=== PATIENT | male | born 1955 | race Caucasian/White ===

== ENCOUNTER 2016-07-28 12:58 | Inpatient (IN) | payer MEDICAID ==
[~2016-07-28] VITALS: Ht 160 cm; Wt 80.0 kg
[2016-07-28] MEDS ORDERED: ASPIRIN 81 MG TAB PO STA (13:03)
[2016-07-28] MEDS ORDERED: NITROGLYCERIN 2% 1 GM OINT PKT TD STA (13:03)
[2016-07-28] MEDS ORDERED: NITROGLYCERIN (SL) 0.4 MG TAB SL PRN ×2 (13:30→15:00)
[2016-07-28 13:36] LABS: ADD SCAN DIFF NO
[2016-07-28 13:39] LABS: BASOPHILS % 0.5 % (0.0-2.0); EOSINOPHILS # 0.2 10^3/ul (0.0-0.5); EOSINOPHILS % 2.3 % (0.0-7.0); HEMATOCRIT 44.6 % (42.0-52.0); HEMOGLOBIN 15.2 g/dl (14.0-18.0); LYMPHOCYTES # 2.8 10^3/ul (0.8-2.9); LYMPHOCYTES % 32.7 % (15.0-51.0); MEAN CORPUSCULAR HEMOGLOBIN 30.8 pg (29.0-33.0); MEAN CORPUSCULAR HGB CONC 34.1 g/dl (32.0-37.0); MEAN CORPUSCULAR VOLUME 90.5 fl (82.0-101.0); MEAN PLATELET VOLUME 10.8 fl (7.4-10.4); MONOCYTE # 0.7 10^3/ul (0.3-0.9); MONOCYTES % 8.1 % (0.0-11.0); NEUTROPHIL # 4.7 10^3/ul (1.6-7.5); NEUTROPHILS % 55.9 % (39.0-77.0); PLATELET COUNT 209 10^3/UL (140-415); RED BLOOD COUNT 4.93 10^6/ul (4.70-6.10); RED CELL DISTRIBUTION WIDTH 12.1 % (11.5-14.5); WHITE BLOOD COUNT 8.4 10^3/ul (4.8-10.8)
[2016-07-28 13:48] LABS: INR 0.91; PROTIME 12.2 Sec (12.2-14.2)
[2016-07-28 13:53] LABS: ANION GAP 12 (8-16); BLOOD UREA NITROGEN 21 mg/dl (7-20); CALCIUM 9.3 mg/dl (8.4-10.2); CARBON DIOXIDE 26 mmol/L (21-31); CHLORIDE 106 mmol/L (97-110); CREATININE 0.88 mg/dl (0.61-1.24); GLUCOSE 128 mg/dl (70-220); POTASSIUM 3.9 mmol/L (3.5-5.1); SODIUM 140 mmol/L (135-144)
--- NOTE | 2016-07-28 14:02 | RADRPT ---
PROCEDURE: Chest x-ray CLINICAL INDICATION: Chest Pain.. TECHNIQUE: One-view frontal. COMPARISON: None available FINDINGS: The cardiac silhouette is normal. No infiltrates are noted. No hilar abnormalities are identified. No pneumothorax or pleural effusions are visualized. Mild left basilar atelectatic changes are noted. IMPRESSION: 1. Mild left basilar atelectatic changes. RPTAT: HGSG .Rod Cooney MD, MD Date Time Electronically viewed and signed by .Rod Cooney MD, on 07/28/2016 14:01 .G/
[2016-07-28 14:24] LABS: TROPONIN-I < 0.012 ng/ml (0.00-0.12)
--- NOTE | 2016-07-28 14:39 | ERA ---
ER Documentation Chief Complaint Date/Time DATE: 07/28/16 TIME: 14:37 Chief Complaint CHEST PAIN STARTED TODAY AND ANXIETY HPI Patient is a 60-year-old male with hypertension who presents with chest pain. The patient was brought in by ambulance. He feels chest pressure and describes it as "cramps and spasms" of the chest. The symptoms started 10 days ago but have been worse over the past 2 days. He has had no treatment as of yet. Upon review of old medical records this the patient's first visit to the emergency department. Patient does not know the name of his primary doctor. ROS All systems reviewed and are negative except as per history of present illness. Medications Home Meds No Active Prescriptions or Reported Meds Allergies Allergies: Coded Allergies: No Known Allergy (Unverified , 07/28/16) PMhx/Soc Medical and Surgical Hx: pt denies Medical Hx, pt denies Surgical Hx Hx Alcohol Use: No Hx Substance Use: No Hx Tobacco Use: No Smoking Status: Never smoker FmHx Family History: No coronary disease Physical Exam Vitals Vital Signs Date Time Temp Pulse Resp B/P Pulse Ox O2 Delivery O2 Flow Rate FiO2 07/28/16 13:30 97.8 71 18 176/101 97 Physical Exam Const: Anxious Head: Atraumatic Eyes: Normal Conjunctiva ENT: Normal External Ears, Nose and Mouth. Neck: Full range of motion..~ No meningismus. Resp: Clear to auscultation bilaterally Cardio: Regular rate and rhythm, no murmurs Abd: Soft, non tender, non distended. Normal bowel sounds Skin: No petechiae or rashes Back: No midline or flank tenderness Ext: No cyanosis, or edema Neur: Awake and alert Psych: Anxious Result Diagram: 07/28/16 1325 07/28/16 1325 Results 24 hrs Laboratory Tests Test 07/28/16 13:25 White Blood Count 8.410^3/ul Red Blood Count 4.9310^6/ul Hemoglobin 15.2g/dl Hematocrit 44.6% Mean Corpuscular Volume 90.5fl Mean Corpuscular Hemoglobin 30.8pg Mean Corpuscular Hemoglobin Concent 34.1g/dl Red Cell Distribution Width 12.1% Platelet Count 33871^3/UL Mean Platelet Volume 10.8fl Neutrophils % 55.9% Lymphocytes % 32.7% Monocytes % 8.1% Eosinophils % 2.3% Basophils % 0.5% Nucleated Red Blood Cells % 0.0/100WBC Neutrophils # 4.710^3/ul Lymphocytes # 2.810^3/ul Monocytes # 0.710^3/ul Eosinophils # 0.210^3/ul Basophils # 0.010^3/ul Nucleated Red Blood Cells # 0.010^3/ul Prothrombin Time 12.2Sec Prothrombin Time Ratio 1.0 INR International Normalized Ratio 0.91 Activated Partial Thromboplast Time 27.0Sec Sodium Level 140mmol/L Potassium Level 3.9mmol/L Chloride Level 106mmol/L Carbon Dioxide Level 26mmol/L Anion Gap 12 Blood Urea Nitrogen 21mg/dl Creatinine 0.88mg/dl Glucose Level 128mg/dl Calcium Level 9.3mg/dl Troponin I < 0.012ng/ml Current Medications Medications (Trade) Dose Ordered Sig/Tamiko Route PRN Reason Start Time Stop Time Status Last Admin Dose Admin Aspirin (Aspirin) 162 mg ONCE STAT PO 07/28/16 13:03 07/28/16 13:04 DC 07/28/16 13:27 Nitroglycerin (Nitroglycerin 2% Oint) 1 inch ONCE STAT TD 07/28/16 13:03 07/28/16 13:04 DC 07/28/16 13:27 Nitroglycerin (Nitroglycerin (Sl Tab) 0.4 Mg) 1 tab Q5M UP TO 3 DOSES PRN SL CHEST PAIN 07/28/16 13:30 07/28/16 13:27 Ondansetron HCl (Zofran Inj) 4 mg ER BRIDGE PRN IV NAUSEA AND/OR VOMITING 07/28/16 15:00 07/29/16 14:59 Acetaminophen (Tylenol Tab) 650 mg ER BRIDGE PRN PO MILD PAIN/FEVER 07/28/16 15:00 07/29/16 14:59 Procedures/MDM EKG #1 read by me: Rate/Rhythm: Regular rate and rhythm at a rate of 83 Intervals: Normal Impression: No evidence of ischemia or arrhythmia EKG #2 pending at this time. Patient is a 60-year-old male with hypertension who presents with hypertension and chest pain. I am concerned for possible acute coronary syndrome. I doubt pneumonia, pneumothorax, pulmonary embolism, or aortic dissection. The patient was given aspirin and nitroglycerin. The patient will need admission to a telemetry bed for further workup. I spoke with Dr. sanjuana TAYLOR from the panel team as the patient does not know his primary doctor has never been here before. Departure Diagnosis: Primary Impression: Hypertension Qualified Code: I10 - Essential hypertension Additional Impression: Chest pain Qualified Code: R07.9 - Chest pain, unspecified type Condition: DINESH Rodriguez MD Jul 28, 2016 14:39
[2016-07-28] MEDS ORDERED: ACETAMINOPHEN 650 MG SUPP PR PRN (15:00)
[2016-07-28] MEDS ORDERED: HYDROCODONE/APAP (5/325) TAB PO PRN ×2 (15:00)
[2016-07-28] MEDS ORDERED: MAGNESIUM HYDROXIDE 30ML CUP PO PRN (15:00)
[2016-07-28] MEDS ORDERED: NACL 0.9% 3 ML SYG IV SCH (15:00)
[2016-07-28] MEDS ORDERED: ACETAMINOPHEN 325 MG TAB PO PRN ×2 (15:00)
[2016-07-28] MEDS ORDERED: ONDANSETRON 4 MG INJ IV PRN ×2 (15:00)
[2016-07-28] MEDS ORDERED: morphine 2 MG INJ IV PRN (15:00)
[2016-07-28] MEDS ORDERED: BISACODYL 10 MG SUPP PR PRN (15:00)
[2016-07-28] MEDS ORDERED: DOCUSATE SODIUM 100 MG CAP PO PRN (15:00)
[2016-07-28] MEDS ORDERED: hydrALAzine 20 MG INJ IV PRN (15:00)
--- NOTE | 2016-07-28 17:28 | HP ---
Date/Time of Note Date/Time of Note DATE: 07/28/16 TIME: 17:21 Assessment/Plan VTE Prophylaxis VTE Prophylaxis Intervention: SCD's Lines/Catheters IV [facility]from [facility] Saline Lock Assessment/Plan Chief Complaint/Hosp Course Impression and plan 1. Chest pain. Rule out ACS. Follow-up on serial troponins. Echocardiogram ordered. Follow-up on result. Will get agency service representative consultation as well. 2. Suspect GERD. Placed on PPI medication for now. If no improvement in reported pain, will obtain job placement specialist consultation 3. Hypertensive urgency. Will start on antihypertensive medications. Patient denies any previous history of hypertension. Will monitor for now. 4. Obesity. Weight reduction advised Admission process 40 minutes Discussed plan of care with Problems: HPI/ROS Admit Date/Time Admit Date/Time Hx of Present Illness There is a 52-year-old male with no reported past medical history who came to [facility] secondary to reports of chest pain for 10 days duration. According to the patient he started to have midsternal chest pain with some associated shortness of breath. He did report having some chest pain on exertion as well. He did report that the pain subsequently got worse 2 days prior to this admission and as such came to [facility] for further evaluation. Upon examination he was noted with high blood pressure as high as 176/101. He also had reported headaches associated with this. On chest x-ray he had mild left basilar atelectatic changes. He denied any shortness of breath however during evaluation. Basic metabolic panel as well as CBC were unremarkable and initial troponin noted at less than 0.012. Patient still reports having some midsternal chest pain. He does also report chest pain when he presses on epigastric area. He denies any fevers chills or any other sick contacts. He does report having moderate headaches with eye pain associated with this chest discomfort. We will evaluate him for the aformentiond issues ROS 12 point review of systems obtained and entirely negative except that mentioned in the history of present illness PMH/Family/Social Past Medical History Medical/surgical history 1. Reported umbilical hernia surgery 10 years ago Family History Significant Family History: other (Mother: Uterine cancer) Social History Alcohol Use: none Smoking Status: Never smoker Drug Use: none Exam/Review of Systems Vital Signs Vitals Vital Signs Date Time Temp Pulse Resp B/P Pulse Ox O2 Delivery O2 Flow Rate FiO2 07/28/16 13:30 97.8 71 18 176/101 97 Exam Constitutional: alert, oriented Psych: nl mood/affect Head: normocephalic Eyes: nl conjunctiva Neck: non-tender, supple Respiratory: clear to auscultation, normal air movement Cardiovascular: regular rate and rhythm Gastrointestinal: non-tender, soft Musculoskeletal: nl extremities to inspection Extremities: normal pulses Neurological: PIANO MOVER II-XII intact, nl mental status, nl speech Skin: nl turgor Labs Result Diagram: 07/28/16 1325 07/28/16 1325 Medications Medications Current Medications Ondansetron HCl (Zofran Inj) 4 mg Q6H PRN IV NAUSEA AND/OR VOMITING; Start at 15:00 Acetaminophen (Tylenol Tab) 650 mg Q6H PRN PO PAIN LEVEL 1-3 OR FEVER; Start at 15:00 Acetaminophen (Tylenol Supp) 650 mg Q6H PRN [place] PAIN LEVEL 1-3 OR FEVER; Start 07/28/16 at 15:00 Acetaminophen/ Hydrocodone Bitart ([place] (5/325)) 1 tab Q6H PRN PO MODERATE PAIN LEVEL 4-6; Start 07/28/16 at 15:00 Acetaminophen/ Hydrocodone Bitart ([place] (5/325)) 2 tab Q6H PRN PO SEVERE PAIN LEVEL 7-10; Start 07/28/16 at 15:00 Morphine Sulfate (morphine) 2 mg Q4H PRN IV SEVERE PAIN LEVEL 7-10; Start 07/28 at 15:00 Docusate Sodium (Colace) 100 mg Q12H PRN PO CONSTIPATION; Start 07/28/16 at 15: 00 Magnesium Hydroxide (Milk Of Mag) 30 ml DAILY PRN PO CONSTIPATION; Start at 15:00 Bisacodyl (Dulcolax Supp) 10 mg DAILY PRN [place] CONSTIPATION; Start 07/28/16 at 15 :00 Famotidine (Pepcid Iv) 20 mg Q12 IV ; Start 07/28/16 at 21:00 Heparin Sodium (Porcine) (Heparin (5000 Units/0.5 ml)) 5,000 unit Q12 SC ; Start 07/28/16 at 21:00 Aspirin (Aspirin) 81 mg DAILY PO ; Start 07/30/16 at 09:00 Nitroglycerin (Nitroglycerin (Sl Tab) 0.4 Mg) 1 tab Q5M PRN SL CHEST PAIN; Start 07/28/16 at 15:00 Hydralazine HCl (Apresoline) 10 mg Q4H PRN IV sbp>160; Start 07/28/16 at 15:00 FILIBERTO GARZA Jul 28, 2016 17:28
[2016-07-28 18:29] LABS: CREATINE KINASE 83 IU/L (23-200)
[2016-07-28 18:43] LABS: TROPONIN-I < 0.012 ng/ml (0.00-0.12)
[2016-07-28] MEDS: LISINOPRIL 5 MG TAB PO SCH (19:40)
[2016-07-28] MEDS: PANTOPRAZOLE (EC) 40 MG TAB PO SCH (19:40)
[2016-07-28 20:00] VITALS: BP 134/84; RESP 18
[2016-07-28 20:05] VITALS: TEMP 98
[2016-07-28 20:26] VITALS: PULSE 74
[2016-07-28 20:30] VITALS: BP 134/80; PULSE 62; RESP 20
[2016-07-28 20:31] VITALS: Ht 160 cm; Wt 80.0 kg
[2016-07-28] MEDS ORDERED: FAMOTIDINE 20 MG INJ IV SCH (21:00)
[2016-07-28] MEDS: ZOLPIDEM 5 MG TAB PO PRN (22:03)
[2016-07-28] MEDS: HEPARIN 5,000 UNIT/0.5 ML VIAL SC SCH (22:04)
[2016-07-28 23:03] LABS: CREATINE KINASE 71 IU/L (23-200)
[2016-07-28 23:40] LABS: CK-MB 0.48 ng/ml (0.0-2.4); TROPONIN-I < 0.012 ng/ml (0.00-0.12)
[2016-07-29] VITALS (11 sets, daily range): BP systolic 109–130; BP diastolic 59–81; PULSE 61–74; RESP 18–20
[2016-07-29] MEDS: PANTOPRAZOLE (EC) 40 MG TAB PO SCH ×2 (06:05→18:31)
[2016-07-29 08:14] LABS: CREATINE KINASE 61 IU/L (23-200)
[2016-07-29 08:26] LABS: CK-MB 0.36 ng/ml (0.0-2.4); TROPONIN-I < 0.012 ng/ml (0.00-0.12)
[2016-07-29 08:36] LABS: ALBUMIN 3.8 g/dl (3.3-4.9); ALBUMIN/GLOBULIN RATIO 1.31; BILIRUBIN,INDIRECT 0.5 mg/dl (0-1.1); BILIRUBIN,TOTAL 0.5 mg/dl (0.2-1.3); CALCIUM 9.3 mg/dl (8.4-10.2); CHOL/HDL RATIO 4.9 RATIO; CREATININE 0.88 mg/dl (0.61-1.24); MAGNESIUM 2.1 mg/dl (1.7-2.5); PHOSPHORUS 3.8 mg/dl (2.5-4.9); POTASSIUM 4.1 mmol/L (3.5-5.1); TOTAL PROTEIN 6.7 g/dl (6.1-8.1)
[2016-07-29 08:49] LABS: T3 UPTAKE 34.7 % (23.5-40.5)
[2016-07-29] MEDS: LISINOPRIL 5 MG TAB PO SCH (08:54)
[2016-07-29 09:02] LABS: THYROID STIMULATING HORMONE 2.69 MIU/L (0.465-4.680)
[2016-07-29] MEDS: HEPARIN 5,000 UNIT/0.5 ML VIAL SC SCH ×2 (09:02→20:47)
[2016-07-29] MEDS ORDERED: LISI-313 PO (17:15)
--- NOTE | 2016-07-29 17:16 | PDOCDIS ---
Discharge Instructions DIAGNOSIS Discharge Diagnosis: 1. chest pain suspect secondary to hypertension 2. htn 3. GERD CONDITION Patient Condition: Stable HOME CARE INSTRUCTIONS: Diet Instructions: Low Fat /Cholesterol FOLLOW UP/APPOINTMENTS Appointments 1. Follow up with your primary care provider in one week FILIBERTO GARZA Jul 29, 2016 17:16
[2016-07-29] MEDS ORDERED: PANT40TA4 PO (17:17)
--- NOTE | 2016-07-29 18:07 | RADRPT ---
Echocardiogram Report Patient Name: DONALD CHOE Gender: Male Date: 1955 Study Date: 28-Jul-2016 Meat Scrubber: [facility] Location: [facility] Ref. Physician: FILIBERTO GARZA Quality: Adequate Procedures: Transthoracic echocardiogram with complete 2D, M-Mode, and doppler examination. Indications: Chest Pain. 2D/M Mode Doppler Measurement Value Normal Ranges Measurement Value Normal Ranges LVIDd 2D 5.2 3.5 - 5.6 cm AV Peak Fran 1.1 m/sec LVIDs 2D 3.7 2.1 - 4.1 cm AV Peak PG 5.2 mmHg LVPWd 2D 0.8 0.6 - 1.1 cm LVOT Peak Fran 0.8 m/sec IVSd 2D 1.0 0.6 - 1.1 cm LVOT Peak PG 2.5 mmHg AoR Diam 2D 2.5 2.0 - 3.7 cm MV E Peak Fran 0.5 m/sec EDV 2D 132.0 cm3 MV A Peak Fran 0.8 m/sec ESV 2D 50.7 cm3 MV E/A 0.6 MV Decel Time 251 msec MV Decel Drew 2 MV E/A 0.6 TR Peak Fran 2.6 m/sec TR Peak PG 27.7 mmHg Findings Left Ventricle: Normal left ventricular systolic function. Normal left ventricular cavity size. Normal left ventricular wall thickness. Ejection fraction is visually estimated at 5560 %. Tissue Doppler/Mitral Doppler indices are consistent with impaired relaxation (Stage I diastolic dysfunction). Right Ventricle: Normal right ventricular size. Normal right ventricular systolic function. Left Atrium: The left atrium is normal in size. Right Atrium: The right atrium is normal in size. Mitral Valve: Mild mitral leaflet calcification. Mild mitral annular calcification. Trace mitral regurgitation. Aortic Valve: Normal appearance of the aortic valve. Trace aortic valve regurgitation. Tricuspid Valve: Normal appearance of the tricuspid valve. Estimated peak PA systolic pressure 28 mmHg. There is mild tricuspid regurgitation. Pulmonic Valve: There is trace pulmonic regurgitation. Pericardium: Normal pericardium with no significant pericardial effusion. Aorta: Normal aortic root. IVC: Normal size and normal respiratory collapse consistent with normal right atrial pressure. Conclusions Normal left ventricular systolic function. Normal left ventricular cavity size. Normal left ventricular wall thickness. Ejection fraction is visually estimated at 55-60 %. Tissue Doppler/Mitral Doppler indices are consistent with impaired relaxation (Stage I diastolic dysfunction). Mild mitral leaflet calcification. Mild mitral annular calcification. Trace mitral regurgitation. Normal appearance of the aortic valve. Trace aortic valve regurgitation. Normal appearance of the tricuspid valve. Estimated peak PA systolic pressure 28 mmHg. There is mild tricuspid regurgitation. There is trace pulmonic regurgitation. Electronically Signed By: Dylan Proctor 29-Jul-2016 18:06:31 -0700 Patient Name: DONALD CHOE Study Date: 28-Jul-2016 [id number]
[2016-07-29] MEDS: ZOLPIDEM 5 MG TAB PO PRN (22:25)
[2016-07-30] VITALS: PULSE 70
[2016-07-30 04:59] VITALS: PULSE 66
[2016-07-30] MEDS: PANTOPRAZOLE (EC) 40 MG TAB PO SCH (06:01)
[2016-07-30 08:04] VITALS: BP 117/81; RESP 16
[2016-07-30] MEDS: LISINOPRIL 5 MG TAB PO SCH (08:48)
[2016-07-30] MEDS: HEPARIN 5,000 UNIT/0.5 ML VIAL SC SCH (08:51)
[2016-07-30] MEDS ORDERED: ASPIRIN 81 MG TAB PO SCH (09:00)
--- NOTE | 2016-07-30 09:05 | PN ---
Date/Time of Note Date/Time of Note LATE ENTRY DATE: 07/29/16 Assessment/Plan VTE Prophylaxis VTE Prophylaxis Intervention: SCD's Lines/Catheters IV Catheter Type (from Nrsg): Saline Lock Urinary Cath still in place: No Assessment/Plan Chief Complaint/Hosp Course Impression and plan 1. Chest pain. Rule out ACS. Serial troponin negative. Echocardiogram pending at present. 2. Suspect GERD. Placed on PPI medication for now. If no improvement in reported pain, will obtain automatic typewriter inspector consultation 3. Hypertensive urgency. Continue on antihypertensives and adjust as needed. Improving 4. Obesity. Weight reduction advised Position and plan: PPI for GERD. Await echocardiogram. DC planning Discussed plan of care with Problems: Subjective 24 Hr Interval Summary Free Text/Dictation Reports no chest pain at this time. Reports better breathing. Still has some reported acid reflux Exam/Review of Systems Vital Signs Vitals Vital Signs Date Time Temp Pulse Resp B/P Pulse Ox O2 Delivery O2 Flow Rate FiO2 07/30/16 08:04 97.9 66 16 117/81 94 07/29/16 16:00 Room Air Intake and Output 07/29/16 07/29/16 07/30/16 14:59 22:59 06:59 Intake Total 600 ml Balance 600 ml Exam Constitutional: alert, oriented Psych: nl mood/affect Head: normocephalic Neck: non-tender, supple, No jvd Respiratory: clear to auscultation, normal air movement Cardiovascular: regular rate and rhythm Gastrointestinal: soft, tender (minimally in epigastric area) Extremities: normal pulses Neurological: CARDIAC MONITOR II-XII intact, nl mental status, nl speech Skin: nl turgor, No rash or lesions Results Result Diagram: 07/28/16 1325 07/29/16 0655 Medications Medications Current Medications Ondansetron HCl (Zofran Inj) 4 mg Q6H PRN IV NAUSEA AND/OR VOMITING; Start at 15:00 Acetaminophen (Tylenol Tab) 650 mg Q6H PRN PO PAIN LEVEL 1-3 OR FEVER; Start at 15:00 Acetaminophen (Tylenol Supp) 650 mg Q6H PRN [place] PAIN LEVEL 1-3 OR FEVER; Start 07/28/16 at 15:00 Acetaminophen/ Hydrocodone Bitart ([place] (5/325)) 1 tab Q6H PRN PO MODERATE PAIN LEVEL 4-6; Start 07/28/16 at 15:00 Acetaminophen/ Hydrocodone Bitart ([place] (5/325)) 2 tab Q6H PRN PO SEVERE PAIN LEVEL 7-10 Last administered on 07/28/16 20:03; Admin Dose 2 TAB; Start at 15:00 Morphine Sulfate (morphine) 2 mg Q4H PRN IV SEVERE PAIN LEVEL 7-10; Start 07/28 at 15:00 Docusate Sodium (Colace) 100 mg Q12H PRN PO CONSTIPATION; Start 07/28/16 at 15: 00 Magnesium Hydroxide (Milk Of Mag) 30 ml DAILY PRN PO CONSTIPATION; Start at 15:00 Bisacodyl (Dulcolax Supp) 10 mg DAILY PRN [place] CONSTIPATION; Start 07/28/16 at 15 :00 Heparin Sodium (Porcine) (Heparin (5000 Units/0.5 ml)) 5,000 unit Q12 SC Last administered on 07/30/16 08:51; Admin Dose 5,000 UNIT; Start 07/28/16 at 21:00 Aspirin (Aspirin) 81 mg DAILY PO Last administered on 07/30/16 08:47; Admin Dose 81 MG; Start 07/30/16 at 09:00 Nitroglycerin (Nitroglycerin (Sl Tab) 0.4 Mg) 1 tab Q5M PRN SL CHEST PAIN; Start 07/28/16 at 15:00 Hydralazine HCl (Apresoline) 10 mg Q4H PRN IV sbp>160; Start 07/28/16 at 15:00 Pantoprazole (Protonix Tab) 40 mg BID@06,18 PO Last administered on 07/30/16 06:01; Admin Dose 40 MG; Start 07/28/16 at 18:00 Lisinopril (Zestril) 5 mg DAILY PO Last administered on 07/30/16 08:48; Admin Dose 5 MG; Start 07/28/16 at 18:00 Zolpidem Tartrate (Ambien) 10 mg HS PRN PO INSOMNIA Last administered on 22:25; Admin Dose 10 MG; Start 07/28/16 at 21:00 FILIBERTO GARZA Jul 30, 2016 09:05
[2016-07-30 09:19] VITALS: PULSE 66
--- NOTE | 2016-07-30 10:27 | DS ---
Date/Time of Note Date/Time of Note DATE: 07/30/16 TIME: 10:21 Discharge Summary Admission/Discharge Info Admit Date/Time Jul 28, 2016 at 14:31 Discharge Date/Time Final Diagnosis 1. Chest pain. 2. Suspect GERD. 3. Hypertensive urgency. 4. Obesity. Patient Condition: Stable Hx of Present Illness There is a 52-year-old male with no reported past medical history who came to [facility] secondary to reports of chest pain for 10 days duration. According to the patient he started to have midsternal chest pain with some associated shortness of breath. He did report having some chest pain on exertion as well. He did report that the pain subsequently got worse 2 days prior to this admission and as such came to [facility] for further evaluation. Upon examination he was noted with high blood pressure as high as 176/101. He also had reported headaches associated with this. On chest x-ray he had mild left basilar atelectatic changes. He denied any shortness of breath however during evaluation. Basic metabolic panel as well as CBC were unremarkable and initial troponin noted at less than 0.012. Patient still reports having some midsternal chest pain. He does also report chest pain when he presses on epigastric area. He denies any fevers chills or any other sick contacts. He does report having moderate headaches with eye pain associated with this chest discomfort. We will evaluate him for the aformentiond issues Hospital Course This is a 52-year-old male with no reported past medical history who came to [facility] due to reports of chest pain for 10 days duration. According to the patient he started to have midsternal chest pain that was associated with some shortness of breath. He denied any radiation of pain. Initially the patient did report having exertional chest pain, however after evaluation and review patient reported that it was more noted whenever he would eat food. He denied any history of GERD. Patient was also noted with high blood pressure initially for which she was provided with antihypertensive and did have good response. He did have serial troponins drawn which were all essentially negative and his echocardiogram showed no significant valvular disorder with noted stage I diastolic dysfunction with EF of 55-60%. Likely chest pain was from his GERD. During his course of stay did improve. He was advised for weight reduction for his obesity. His high blood pressure was more controlled. His chest pain had resolved. He did have good response from PPI medication and patient was with likely GERD. He was instructed to follow-up with his primary care provider within a week. The plan of care was discussed with patient and patient did verbalize understanding. On the day of discharge patient was in stable condition Discussed plan of care with Dr. Benjamin Discharge process time 40 minutes Home Meds Active Scripts Pantoprazole* (Pantoprazole*) 40 Mg Tablet.dr 40 MG PO BID@06,18 for 30 Days Prov:FILIBERTO GARZA 07/29/16 Lisinopril* (Lisinopril*) 5 Mg Tablet, 5 MG PO DAILY for 30 Days, TAB Prov:FILIBERTO GARZA 07/29/16 Follow-up Plan CONDITION Patient Condition: Stable HOME CARE INSTRUCTIONS: Diet Instructions: Low Fat /Cholesterol FOLLOW UP/APPOINTMENTS Appointments 1. Follow up with your primary care provider in one week FILIBERTO GARZA Jul 30, 2016 10:27
== END 2016-07-30 11:23 | disposition home or self-care (01) | DRG 392 ==
LOC: E/R 12:58 → MS4 14:31
PROVIDERS: ADMIT Family Medicine; ATTEND Family Medicine
DX: K21.9 Gastro-esophageal reflux disease without esophagitis (principal); I16.0 Hypertensive urgency; R07.9 Chest pain, unspecified; E66.9 Obesity, unspecified; Z68.31 Body mass index [BMI] 31.0-31.9, adult
CPT/HCPCS: 36415; 71010; 80048; 80053; 80061; 82550; 82553; 83036; 83735; 84100; 84436; 84443; 84479; 84484; 85025; 85610; 85730; 93005; 93306; J1644